=== PATIENT | female | born 2000 | race Caucasian/White ===

== ENCOUNTER 2024-07-23 23:50 | Emergency (ER) | payer SELFPAY ==
[~2024-07-23] VITALS: Ht 172.7 cm; Wt 79.5 kg
[~2024-07-23 23:50] MED LIST: ALBUTEROL0.09 MG/A4 IH; LOESTRIN 1/20 28 DAY PO; NAPROSYN500 MG PO; NO HOME MEDICATIONS; ZOFRAN ODT4 MG PO
[2024-07-23 23:56] VITALS: TEMP 98.1
[2024-07-24] MEDS ORDERED: Ibuprofen 400 MG TAB PO ONE (00:30)
[2024-07-24] MEDS ORDERED: Acetaminophen 325 MG TAB PO ONE (00:30)
[2024-07-24 01:09] VITALS: BP 134/103; PULSE 68
== END 2024-07-24 01:00 | disposition home or self-care (01) ==
LOC: COL.ER 23:50
DX: S61.411A Laceration without foreign body of right hand, initial encounter (principal); W25.XXXA Contact with sharp glass, initial encounter; Y92.89 Other specified places as the place of occurrence of the external cause; Y99.0 Civilian activity done for income or pay